=== PATIENT | male | born 1930 | race Caucasian/White ===

== ENCOUNTER 2016-07-27 00:08 | Observation (INO) ==
[2016-07-27] MEDS ORDERED: PANTOPRAZOLE 40 MG VIAL IV ONE (00:25)
[2016-07-27] MEDS ORDERED: 0.9 % SODIUM CHLORIDE 1,000 ML IV ONE (00:25)
--- NOTE | 2016-07-27 00:25 | Emergency Department Note ---
General Adult HPI - General Chief complaint: Dizziness Stated complaint: Lightheadedness, Black Stool Time Seen by Provider: 07/27/16 00:17 Source: patient Mode of arrival: ambulatory Limitations: no limitations - History of Present Illness HPI Narrative: 86-year-old male states that he had an episode of stools 3 days ago on a another bowel movement one day ago and a bowel movement today which was black. denies any abdominal pain. He uses an 81 mg aspirin daily is been no hematemesis, no diarrhea, no nausea or vomiting. - Related Data Home Medications Medication Instructions Recorded Confirmed Aspirin [Denisse Chewable Aspirin] 81 mg PO QDAY 06/27/15 05/19/16 latanoprost 0.005 % eye drops OPHTHALMIC 25 Days 08/19/15 05/19/16 cyanocobalamin (vit B-12) 1,000 1,000 mcg PO QDAY 08/24/15 05/19/16 mcg tablet omega-3 fatty acids 1,000 mg 1,000 mg PO QDAY 04/19/16 05/19/16 capsule qjarmcap-zuj-vjuzs acid 300 tab PO 05/19/16 05/19/16 mcg-lycopene 600 mcg-lutein 300 mcg tablet Previous Rx's Medication Instructions Recorded tamsulosin 0.4 mg capsule 0.4 mg PO QDAY #90 cap 08/19/15 metoprolol succinate ER 50 mg 50 mg PO QDAY #90 tab 01/11/16 tablet,extended release 24 hr amlodipine 5 mg tablet 5 mg PO QDAY 30 Days 03/22/16 levothyroxine 50 mcg tablet 50 mcg PO QDAY #90 tab 03/29/16 oxybutynin chloride 5 mg tablet 5 mg PO TID #30 tab 05/19/16 Allergies Allergy/AdvReac Type Severity Reaction Status Date / Time No Known Drug Allergies Allergy Verified 05/19/16 08:55 Review of Systems All systems ED: reviewed and negative except as stated. Constitutional: Denies: fever, chills Eyes: Denies: eye pain ENT ED: Denies: ear pain Cardiovascular: Denies: chest pain Respiratory: Denies: cough Gastrointestinal: Reports: as per HPI, melena. Denies: abdominal pain, nausea, vomiting, diarrhea, constipation, hematemesis, hematochezia Genitourinary: Reports: as per HPI. Denies: urgency, dysuria, frequency Musculoskeletal: Denies: back pain Integumentary: Denies: rash Neurological: Denies: headache Psychiatric: Denies: anxiety Past Medical History - Past Medical History Medical history: Reports: arthritis, GERD, hypertension, other (Peripheral neuropathy, vertigo, urinary frequency, squamous cell carcinoma prostate cancer , peripheral vascular disease, onychomycosis, leukocytopenia, or seal, hiatal hernia, heart disease, glaucoma, T, esophageal stricture, colon adenoma, basal cell carcinoma, cardiac arrhythmia or aortic insufficiency actinic keratosis, gastroenteritis.) Surgical history ED: Reports: hip replacement, other (prostate biopsy, EGD, tonsillectomy) - Social History Alcohol use: Reports: None Drug use: Reports: none Physical Exam - General Limitations: no limitations General appearance: alert - Head Head exam: atraumatic - Eye Eye exam: Present: normal appearance, PERRL - ENT ENT exam: normal exam, normal oropharynx - Neck Neck exam: Present: normal inspection, full ROM - Chest Chest inspection: Present: normal inspection, symmetric chest wall rise - Respiratory Respiratory exam: Present: normal lung sounds bilaterally. Absent: respiratory distress, wheezes - Cardiovascular Cardiovascular exam: Present: regular rate, normal rhythm. Absent: bradycardia - Abdominal Exam Abdominal exam: Present: soft, normal bowel sounds. Absent: distention, tenderness, guarding, rebound, tenderness at McBurney's Point - Rectal Exam Rectal exam: Present: normal rectal tone, heme (+) stool, black stool - exam: Present: normal inspection. Absent: testicular tenderness - Extremities Exam Extremities exam: Present: normal inspection, full ROM. Absent: tenderness - Back Exam Back exam: Present: normal inspection, full ROM. Absent: tenderness - Neurological Exam Neurological exam: Present: alert, oriented X3, CN II-XII intact - Psychiatric Psychiatric exam: Present: normal affect, normal mood Course Vital Signs Temperature 98.3 F 07/27/16 00:09 Pulse Rate 91 H 07/27/16 00:09 Respiratory Rate 18 07/27/16 00:09 Blood Pressure 153/62 07/27/16 00:09 Pulse Oximetry (%) 96 07/27/16 00:09 Temperature 98.3 F 07/27/16 00:09 Pulse Rate 91 H 07/27/16 00:09 Respiratory Rate 18 07/27/16 00:09 Blood Pressure 153/62 07/27/16 00:09 Pulse Oximetry (%) 96 07/27/16 00:09 Medical Decision Making - MDM Narrative Medical decision making narrative: black stools x 3 days 3 bm's during that time. Hb 8.1 and hct 24.9. On protonix drip now aFTER BOLUS OF 80 MG. Rectal hemetest positive. cross and typed [address] Briones contacted and pt scheduled for egd in am pt admitted for observation. Pt states he is DNR - Lab Data Result diagrams: 07/27/16 00:25 Lab Results 07/27/16 07/27/16 07/27/16 Range/Units 00:25 00:25 00:50 WBC 4.9 (4.5-11.0) K/mcL RBC 2.86 L (4.50-5.90) M/mcL Hgb 8.1 L (13.5-16.5) g/dL Hct 24.9 L (41.0-55.0) % POC Hct 22.0 L (41.0-55.0) % MCV 87.1 (80.0-100.0) fL MCH 28.5 (26.0-34.0) pg MCHC 32.8 (31.0-36.0) g/dL RDW 15.6 H (11.5-14.5) % Plt Count 266 (140-440) K/mcL MPV 6.1 L (7.4-10.4) fL Gran % 46.7 (38.0-78.0) % Lymph % (Auto) 42.1 (15.5-49.0) % [place] % (Auto) 8.0 (1.0-9.0) % Eos % (Auto) 2.9 (0.0-7.0) % Baso % (Auto) 0.3 (0.0-2.0) % Gran # 2.3 (1.8-8.0) K/mcL Lymph # 2.1 (1.5-4.8) K/mcL [place] # 0.4 (0.1-0.9) K/mcL Eos # 0.1 (0.0-0.7) K/mcL Baso # 0 (0.0-0.3) K/mcL POC PT 12.1 sec POC INR 1.0 (0.9-1.2) POC Sodium 142 (133-145) mmol/L POC Potassium 3.5 (3.3-5.1) mmol/L POC Chloride 104 (96-108) mmol/L POC Total CO2 22 (22-30) mmol/L POC BUN 20 (8-23) mg/dl POC Creatinine 1.0 (0.7-1.2) mg/dl POC Glucose 103 (70-105) mg/dL POC WB Ioniz Calcium 1.01 L (1.16-1.32) mmol/L Disposition Clinical Impression: Upper GI bleed Disposition: Xfer As Outpt/Obs ([facility]) Condition: Fair Referrals: Benjamin Patricia MD [Primary Care Provider] -
[2016-07-27] MEDS: PANTOPRAZOLE 80 MG in 0.9 % SODIUM CHLORIDE 100 ML IV SCH ×3 (00:59→21:06)
[2016-07-27 01:10] LABS: Basophils # (Auto) 0 K/mcL (0.0-0.3); Basophils % (Auto) 0.3 % (0.0-2.0); Eosinophils # (Auto) 0.1 K/mcL (0.0-0.7); Eosinophils % (Auto) 2.9 % (0.0-7.0); Granulocytes % (Auto) 46.7 % (38.0-78.0); Lymphocytes # (Auto) 2.1 K/mcL (1.5-4.8); Lymphocytes % (Auto) 42.1 % (15.5-49.0); Mean Cell Volume 87.1 fL (80.0-100.0); Mean Corpuscular HGB Conc 32.8 g/dL (31.0-36.0); Mean Corpuscular Hemoglobin 28.5 pg (26.0-34.0); Monocytes # (Auto) 0.4 K/mcL (0.1-0.9); Platelet Count 266 K/mcL (140-440); RBC 2.86 M/mcL (4.50-5.90); Red Cell Distribution Width 15.6 % (11.5-14.5)
[2016-07-27] MEDS ORDERED: ONDANSETRON 4 MG/2 ML VIAL IV PRN ×3 (01:20→16:49)
[2016-07-27] MEDS: 0.9 % SODIUM CHLORIDE 1,000 ML IV SCH ×3 (02:55→18:04)
--- NOTE | 2016-07-27 07:06 | XRay Report ---
CLINICAL INFORMATION: GI bleeding COMPARISON: None. FINDINGS: Stool gas pattern is normal. There is no free air, soft tissue mass, organomegaly or pathologic calcification. The right diaphragm is moderately elevated - unchanged from a chest x-ray over two years ago IMPRESSION: Chronic elevation right diaphragm - stable. No intra-abdominal disease Interpreted and Authenticated by: Armando Beauchamp 07/27/16
[2016-07-27 09:40] LABS: Mean Cell Volume 87.2 fL (80.0-100.0); Mean Corpuscular HGB Conc 33.2 g/dL (31.0-36.0); Mean Corpuscular Hemoglobin 28.9 pg (26.0-34.0); Platelet Count 255 K/mcL (140-440); RBC 3.37 M/mcL (4.50-5.90)
[2016-07-27 10:07] LABS: Band Neutrophils % 1 % (0-10); Eosinophils % (Manual) 4 % (0-7); Lymphocytes % 39 % (15-49); Monocytes % (Manual) 6 % (1-9); Platelet Estimate NORMAL (NORMAL); RBC Morphology ABNORMAL (NORMAL); Segmented Neutrophils % 47 % (38-78)
--- NOTE | 2016-07-27 13:46 | XRay Report ---
CLINICAL INFORMATION: Preop COMPARISON: 07/21/2016 two view chest x-ray FINDINGS: Heart is at upper limits of normal in size. Mediastinum and pulmonary vessels are normal. Scattered calcified granulomas seen - as before. There are no new pulmonary abnormality. No effusion. Marked chronic elevation right diaphragm is unchanged IMPRESSION: No acute disease. Marked chronic elevation right diaphragm - unchanged Interpreted and Authenticated by: Armando Beauchamp 07/27/16
--- NOTE | 2016-07-27 14:40 | General Surg History&Physical ---
History of Present Illness Patient information: Note initiated : 07/27/16 at 2:37 pm Service Date, if different from initiated Date: [] Patient: Kong Kirkland 86 y/o M admitted on 07/27/16 for Lightheadedness, Black Stool. Chief Complaint: [] HPI: Mr. Kirkland is a 86 year old male who is admitted with recurrent melena. Patient had black bowel movements on 1516 and 26 July. 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 When seen last evening his hemoglobin was 8.1. The patient denies dysphagia or indigestion. He has not had weight loss. He does have a history of constipation. 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 He has a history of esophageal strictue in the past. He also has a history of colon polyps but cannot remember th. He has been transfu hemoglobin is now 9.8. He has not had any melena since admission to the hospital early this morning. Review of Systems - Constitutional no anorexia, no malaise, no weakness, no weight loss - EENT Nose, mouth and throat: dizziness, vertigo - Cardiovascular dyspnea on exertion, palpatations, rapid heart rate, syncope - Respiratory dyspnea on exertion, no cough, no wheezing - Gastrointestinal abdominal pain, constipation - Genitourinary nocturia, urinary frequency, urinary urgency - Musculoskeletal arthralgias, back pain - Integumentary no changing lesions - Neurological numbness, paresthesias - Psychiatric no anxiety, no confusion, no depression - Endocrine palpitations, no fatigue - Hematologic/Lymphatic no easy bleeding, no easy bruising, no lymphadenopathy - Allergic/Immunologic no tongue swelling, no throat swelling, no uticaria, no wheezing, no lip swelling Past History Past medical history: prostate cancer History of syncope History of colon polyps gastroesophageal reflux disease with Mccormick's esophagusHistory of distal esophageal stricture Peripheral neuropathy Aortic insufficiency Leukopenia Peripheral vascular disease Hypertension history of multiple skin cancers Past surgical history: left total hip arthroplasty 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 Past family history: lung cancer Prostate cancer Coronary artery disease Past social history: never smoker Denies alcohol use Denies drug use Medications and Allergies Home Medications Medication Instructions Recorded Confirmed Type Aspirin [Denisse Chewable Aspirin] 81 mg PO QDAY 06/27/15 07/27/16 History cyanocobalamin (vit B-12) 1,000 1,000 mcg PO QDAY 08/24/15 07/27/16 History mcg tablet omega-3 fatty acids 1,000 mg 1,000 mg PO QDAY 04/19/16 07/27/16 History capsule jjxofyhk-ofw-ddxcz acid 300 1 tab PO DAILY 05/19/16 07/27/16 History mcg-lycopene 600 mcg-lutein 300 mcg tablet Latanoprost Ophth Drops [Xalatan 1 gtt BOTH EYES HS 07/27/16 07/27/16 History Ophth Drops] Allergies Allergy/AdvReac Type Severity Reaction Status Date / Time No Known Drug Allergies Allergy Verified 05/19/16 08:55 Exam Temp Pulse Resp BP Pulse Ox 98.2 F 69 15 123/79 93 07/27/16 11:22 07/27/16 11:22 07/27/16 11:22 07/27/16 11:22 07/27/16 11:22 - General physical appearance well developed, well nourished, no distress - Eyes PERRL, normal ocular movement - ENT normal pinna, normal nares, normal mucosa, no hearing loss, no congestion, dentures - Head Head exam IM: Present: atraumatic, normocephalic - Neck no masses, no bruits, trachea midline, no lymphadectomy, no venous distension - Cardiovascular Cardiovascular exam IM: Present: normal rate and rhythm, +S1, +S2, tachycardia - Respiratory normal expansion, normal respiratory effort, clear to percussion, clear to auscultation - Abdomen Abdomen: Present: soft, non tender, bowel sounds. Absent: masses, distended Hernia: Present: none - Integumentary Present: no rash, no growths, no abnormal pigmentation - Neurologic Present: normal coordination, normal sensation - Musculoskeletal Present: normal gait, normal posture - Psychiatric Present: oriented to time, oriented to person, oriented to place, speech is normal, memory intact Assessment and Plan (1) Upper GI bleed patient is counseled for upper endoscopy. It will be done when space and time are available today. He will be continued on pantoprazole infusion. Status: Acute (2) Mccormick's esophagus Status: Chronic Qualifiers: Mccormick's esophagus type: without dysplasia Qualified Code(s): K22.70 - Mccormick's esophagus without dysplasia (3) Esophageal stricture Status: Chronic (4) Hypertension, essential Status: Chronic (5) Peripheral neuropathy Status: Chronic Qualifiers: Peripheral neuropathy type: polyneuropathy, unspecified Qualified Code(s): G62.9 - Polyneuropathy, unspecified (6) Prostate cancer Status: Chronic Comment: Prostate carcinoma, treated with radiation seed implants (7) Syncope Status: Resolved Comment: Neurogenic cardiosyncope
[2016-07-27] MEDS ORDERED: PROPOFOL 200 MG/20 ML VIAL IV ONE (16:12)
[2016-07-27] MEDS ORDERED: MIDAZOLAM 5 MG/5 ML VIAL IV ONE (16:12)
[2016-07-27] MEDS ORDERED: LACTATED RINGERS 250 ML IV PRN (16:26)
[2016-07-27] MEDS ORDERED: ePHEDrine 50 MG/ML AMPUL IV PRN (16:26)
[2016-07-27] MEDS ORDERED: FLUMAZENIL 0.1 MG/ML ML IV PRN (16:26)
[2016-07-27] MEDS ORDERED: BENZOCAINE/MENTHOL 1 LOZENGE PO PRN (16:26)
[2016-07-27] MEDS ORDERED: diphenhydrAMINE 50 MG/ML VIAL IV PRN (16:26)
[2016-07-27] MEDS ORDERED: IPRATROPIUM/ALBUTEROL 3 ML AMPUL.NEB NEB PRN (16:26)
--- NOTE | 2016-07-27 16:28 | Brief Operative Note ---
Date of procedure: 07/27/16 Pre-op diagnosis: upper gastrointestinal bleeding Post-op diagnosis: other (distal esophagitis with distal esohageal linear ulcers x 2 ; large hiatal hernia; antral gastritis; severe duodenitis with healing duodenal ulcers; no active bleeding) Procedure: EGD WITH BIOPSIES Grafts/Implants: No Anesthesia: local Findings: LARGE HIATAL HERNIA; DISTAL ESOPHAGITIS WITH 2 LINEAR ULCERSWITH EARLY HEALING BASE; ANTRAL GASTRITIS ; DUODENITIS WITH HEALING DUODENAL BULB ULCER; NO ACTIVE BLEEDING Complications: none Surgeon: Ace Briones Estimated blood loss (cc): 0 Specimens Removed/Pathology: other (ANTRAL BIOPSIES) Condition: stable Disposition: PACU
[2016-07-27] MEDS ORDERED: LACTATED RINGERS 1,000 ML IV SCH ×2 (16:30→16:49)
[2016-07-27] MEDS ORDERED: 0.9 % SODIUM CHLORIDE 1,000 ML IV SCH (16:49)
[2016-07-27] MEDS: SUCRALFATE 1 GM/10 ML ORAL.SUSP PO SCH ×2 (18:00→23:26)
[2016-07-27] MEDS: LATANOPROST OPHTH DROPS 2.5ML BOTTLE OU SCH (20:08)
[2016-07-28] MEDS: SUCRALFATE 1 GM/10 ML ORAL.SUSP PO SCH ×3 (05:13→18:01)
[2016-07-28] MEDS: LEVOTHYROXINE 50 MCG TABLET PO SCH (06:59)
[2016-07-28 08:09] LABS: Basophils # (Auto) 0 K/mcL (0.0-0.3); Basophils % (Auto) 0.6 % (0.0-2.0); Eosinophils # (Auto) 0.1 K/mcL (0.0-0.7); Eosinophils % (Auto) 3.2 % (0.0-7.0); Lymphocytes # (Auto) 1.4 K/mcL (1.5-4.8); Lymphocytes % (Auto) 33.3 % (15.5-49.0); Mean Cell Volume 88.1 fL (80.0-100.0); Mean Corpuscular HGB Conc 33.3 g/dL (31.0-36.0); Mean Corpuscular Hemoglobin 29.3 pg (26.0-34.0); Monocytes # (Auto) 0.4 K/mcL (0.1-0.9); Monocytes % (Auto) 8.9 % (1.0-9.0); Platelet Count 266 K/mcL (140-440); RBC 3.49 M/mcL (4.50-5.90); Red Cell Distribution Width 15.6 % (11.5-14.5)
[2016-07-28] MEDS: PANTOPRAZOLE 80 MG in 0.9 % SODIUM CHLORIDE 100 ML IV SCH ×3 (08:11→20:23)
[2016-07-28 08:17] LABS: Blood Urea Nitrogen 10 mg/dl (8-23)
[2016-07-28] MEDS: TAMSULOSIN 0.4 MG CAPSULE PO SCH (08:45)
[2016-07-28] MEDS: amLODIPine 5 MG TABLET PO SCH (08:46)
[2016-07-28] MEDS: METOPROLOL SUCCINATE 50 MG TAB.XL.24H PO SCH (08:46)
[2016-07-28] MEDS ORDERED: PNEUMOCOCCAL 23-VAL P-SAC VAC 0.5 ML VIAL IM ONE (10:00)
--- NOTE | 2016-07-28 12:29 | Surgical Pathology Report ---
HISTOLOGY SPECIMEN MICROSCOPIC DIAGNOSIS STOMACH, ANTRUM, BIOPSY: -- MILD CHRONIC GASTRITIS. -- NO HELICOBACTER TYPE ORGANISMS IDENTIFIED (ALCIAN YELLOW STAIN WITH ADEQUATE TECHNICAL CONTROL). (RLF:lc) CLINICAL HISTORY Upper gastrointestinal bleeding. PROCEDURAL IMPRESSION Antral gastritis; large hiatal hernia; distal esophagitis with two linear ulcers; duodenitis with healing duodenal bulb ulcer. GROSS DESCRIPTION Received in formalin labeled antrum biopsy, is a 0.3 cm pink-dexter tissue fragment. Totally submitted - one cassette. (STM:adj) Electronically Signed by: Cielo Leyva M.D.
[2016-07-28] MEDS: 0.9 % SODIUM CHLORIDE 1,000 ML IV SCH (15:56)
--- NOTE | 2016-07-28 15:59 | General Surgery Progress Note ---
Subjective Narrative: Note initiated : 07/28/16 at 3:56 pm Service Date, if different from initiated Date: [] Patient: Kong Kirkland 86 y/o M admitted on 07/27/16 for Lightheadedness, Black Stool/Upper GI Bleed. Chief Complaint: [the patient has done well over the past 18 hours. He has no discomfor. He is eating without difficulty. He has not had a bowel movement as yet. His hemoglobin has increased.] Objective Temp Pulse Resp BP Pulse Ox 97.6 F 74 18 118/72 95 07/28/16 11:20 07/28/16 11:20 07/28/16 11:20 07/28/16 11:20 07/28/16 11:20 - Additional Data Intake & Output - Last 24 hours: Intake & Output 07/26/16 07/27/16 07/28/16 07/29/16 05:59 05:59 05:59 05:59 Intake Total 325 / 1325 2006 / 2006 1740 / 1740 Output Total 1125 / 1125 2029 / 2029 1325 / 1325 Balance -800 / 200 -23 / -23 415 / 415 Weight 190 lb 8 oz - Additional Exam HEENT is unremarkable Neck is supple without JVD bruits or adenopathy Chest clear to auscultation Heart regular without ectopy abdomen soft but mildly distended; no tenderness or guarding; good active bowel sounds Extremities without edema neurologic no focal deficits - Labs 07/28/16 07:18 07/28/16 07:18 Diabetes panel 07/28/16 Range/Units 07:18 Sodium 143 (133-145) mmol/L Potassium 3.7 (3.3-5.1) mmol/L Chloride 106 (96-108) mmol/L Carbon Dioxide 26 (22-30) mmol/L BUN 10 (8-23) mg/dl Creatinine 0.9 (0.7-1.2) mg/dl Glucose 90 (70-105) mg/dL Calcium 7.9 L (8.6-10.4) mg/dl Calcium panel 07/28/16 Range/Units 07:18 Calcium 7.9 L (8.6-10.4) mg/dl Pituitary panel 07/28/16 Range/Units 07:18 Sodium 143 (133-145) mmol/L Potassium 3.7 (3.3-5.1) mmol/L Chloride 106 (96-108) mmol/L Carbon Dioxide 26 (22-30) mmol/L BUN 10 (8-23) mg/dl Creatinine 0.9 (0.7-1.2) mg/dl Glucose 90 (70-105) mg/dL Calcium 7.9 L (8.6-10.4) mg/dl Adrenal panel 07/28/16 Range/Units 07:18 Sodium 143 (133-145) mmol/L Potassium 3.7 (3.3-5.1) mmol/L Chloride 106 (96-108) mmol/L Carbon Dioxide 26 (22-30) mmol/L BUN 10 (8-23) mg/dl Creatinine 0.9 (0.7-1.2) mg/dl Glucose 90 (70-105) mg/dL Calcium 7.9 L (8.6-10.4) mg/dl Medical - PN: A/P - Time Spent With Patient Total time spent is greater than 50% in coordination of care (as documented) at patient's floor/unit and/or counseling patient: (1) Upper GI bleed Status: Acute Assessment and plan: patient is stable and has no evidence of ongoing bleeding. He will probably be stable for discharge in the morning Current Visit: Yes (2) Mccormick's esophagus Status: Chronic Current Visit: No (3) Esophageal stricture Status: Chronic Current Visit: No (4) Hypertension, essential Status: Chronic Current Visit: No (5) Peripheral neuropathy Status: Chronic Current Visit: No (6) Prostate cancer Problem details: Prostate carcinoma, treated with radiation seed implants Status: Chronic Current Visit: No (7) Syncope Problem details: Neurogenic cardiosyncope Status: Resolved Current Visit: No
[2016-07-28] MEDS: LATANOPROST OPHTH DROPS 2.5ML BOTTLE OU SCH (22:22)
[2016-07-29] MEDS: SUCRALFATE 1 GM/10 ML ORAL.SUSP PO SCH ×3 (01:07→11:16)
[2016-07-29] MEDS: PANTOPRAZOLE 80 MG in 0.9 % SODIUM CHLORIDE 100 ML IV SCH ×2 (06:20→11:17)
[2016-07-29] MEDS: LEVOTHYROXINE 50 MCG TABLET PO SCH (07:24)
[2016-07-29] MEDS: TAMSULOSIN 0.4 MG CAPSULE PO SCH (08:34)
[2016-07-29] MEDS: amLODIPine 5 MG TABLET PO SCH (08:34)
[2016-07-29] MEDS: METOPROLOL SUCCINATE 50 MG TAB.XL.24H PO SCH (08:35)
[2016-07-29] MEDS: 0.9 % SODIUM CHLORIDE 1,000 ML IV SCH (11:05)
--- NOTE | 2016-07-29 11:40 | General Surgery Progress Note ---
Subjective Patient reports: feels better, tolerating a regular diet, flatus, no bowel movement, afebrile Narrative: Note initiated : 07/29/16 at 11:38 am Service Date, if different from initiated Date: [28 jul 2016] Patient: Kong Kirkland 86 y/o M admitted on 07/27/16 for Lightheadedness, Black Stool/Upper GI Bleed. Chief Complaint: [patient feels better. He has not had a bowel movement and he denies nausea. He's tolerating the diet without difficulty. He denies abdominal pain.] Objective Temp Pulse Resp BP Pulse Ox 99.0 F 75 14 108/71 95 07/29/16 08:00 07/29/16 08:00 07/29/16 08:00 07/29/16 08:00 07/29/16 08:00 - Additional Data Intake & Output - Last 24 hours: Intake & Output 07/27/16 07/28/16 07/29/16 07/30/16 05:59 05:59 05:59 05:59 Intake Total 325 / 1325 2006 / 2006 3480 / 3480 940 / 940 Output Total 1125 / 1125 2029 / 2029 2225 / 2225 650 / 650 Balance -800 / 200 -23 / -23 1255 / 1255 290 / 290 Weight 190 lb 8 oz 195 lb - General physical appearance well developed, no distress, no pain - Eyes PERRL - ENT no congestion - Neck no venous distension - Respiratory clear to auscultation - Cardiovascular Cardiovascular exam: Present: normal rate and rhythm, RRR, +S1, +S2 - Abdomen soft, non tender, bowel sounds (abdomen is soft. There is no tenderness. He has good active bowel sounds. There is no distention.) - Integumentary no rash, no growths - Neurologic normal coordination, normal sensation - Musculoskeletal normal posture, other (unstable gait) - Psychiatric oriented to time, oriented to person, oriented to place, speech is normal, memory intact - Labs 07/28/16 07:18 07/28/16 07:18 Medical - PN: A/P - Time Spent With Patient Total time spent is greater than 50% in coordination of care (as documented) at patient's floor/unit and/or counseling patient: (1) Upper GI bleed Status: Acute Assessment and plan: patient is stable and has no evidence of ongoing bleeding. He if stable for discharge We will follow up in 2 weeks Current Visit: Yes (2) Mccormick's esophagus Status: Chronic Current Visit: No (3) Esophageal stricture Status: Chronic Current Visit: No (4) Hypertension, essential Status: Chronic Current Visit: No (5) Peripheral neuropathy Status: Chronic Current Visit: No (6) Prostate cancer Problem details: Prostate carcinoma, treated with radiation seed implants Status: Chronic Current Visit: No (7) Syncope Problem details: Neurogenic cardiosyncope Status: Resolved Current Visit: No
--- NOTE | 2016-07-29 11:45 | General Surgery Progress Note ---
Subjective Patient reports: no new complaints, feels better, tolerating a regular diet, flatus, no bowel movement, afebrile Narrative: Note initiated : 07/29/16 at 11:42 am Service Date, if different from initiated Date: [] Patient: Kong Kirkland 86 y/o M admitted on 07/27/16 for Lightheadedness, Black Stool/Upper GI Bleed. Chief Complaint: [patient is stable and has no complaints. He has not had a bowel movement as yet but he is having flatus. He denies abdominal pain or indigestion. He is stable for discharge.] Objective Temp Pulse Resp BP Pulse Ox 99.0 F 75 14 108/71 95 07/29/16 08:00 07/29/16 08:00 07/29/16 08:00 07/29/16 08:00 07/29/16 08:00 - Additional Data Intake & Output - Last 24 hours: Intake & Output 07/27/16 07/28/16 07/29/16 07/30/16 05:59 05:59 05:59 05:59 Intake Total 325 / 1325 2006 / 2006 3480 / 3480 940 / 940 Output Total 1125 / 1125 2030 / 2030 2225 / 2225 650 / 650 Balance -800 / 200 -23 / -23 1255 / 1255 290 / 290 Weight 190 lb 8 oz 195 lb - Additional Exam HEENT is unremarkable except for hard of hearing Neck is supple without JVD Chest clear to auscultation Heart--regular without ectopy Abdomen--soft nontender and nondistended Extremities--no edema Neurologic exam--no focal deficit - Labs 07/28/16 07:18 07/28/16 07:18 Medical - PN: A/P - Time Spent With Patient Total time spent is greater than 50% in coordination of care (as documented) at patient's floor/unit and/or counseling patient: (1) Upper GI bleed Status: Acute Assessment and plan: patient is stable and has no evidence of ongoing bleeding. He if stable for discharge We will follow up in 2 weeks Current Visit: Yes (2) Mccormick's esophagus Status: Chronic Current Visit: No (3) Esophageal stricture Status: Chronic Current Visit: No (4) Hypertension, essential Status: Chronic Current Visit: No (5) Peripheral neuropathy Status: Chronic Current Visit: No (6) Prostate cancer Problem details: Prostate carcinoma, treated with radiation seed implants Status: Chronic Current Visit: No
--- NOTE | 2016-07-29 11:57 | Discharge Summary ---
Providers - Providers Patient information: Note initiated : 07/29/16 at 11:48 am Service Date, if different from initiated Date: [] Patient: Kong Kirkland 86 y/o M admitted on 07/27/16 for Lightheadedness, Black Stool/Upper GI Bleed. Chief Complaint: [] Date of admission: 07/27/16 Discharge date: 07/29/16 Attending physician: Ace Briones Hospitalization Hospital course: 86-year-old male admitted with upper GI bleed with melena. He was stabilized and underwent endoscopy which showed distal esophageal ulcers with evidence of recent bleed but no active bleeding; active acute distal esophagitis without stricture; active duodenal bulb ulcer without bleeding; active acute and subacute gastritis without ulceration. The patient has been stable since endoscopy. He has not had any more melena and his hemoglobin has increased. He has tolerated regular diet and is ready for discharge. He will be discharged on pantoprazole and Carafate. Discharge diagnosis: distal esophagealulcer with hemorrhage Secondary discharge diagnosis: acute distal esophagitis Acute antral erosive gastritis Acute duodenal ulcer Reason for admission: upper GI bleeding Procedures: ESOPHAGOGASTRODUODENOSCOPY Complications: none Exam Temp Pulse Resp BP Pulse Ox 99.0 F 75 14 108/71 95 07/29/16 08:00 07/29/16 08:00 07/29/16 08:00 07/29/16 08:00 07/29/16 08:00 - General physical appearance well nourished, no distress, no pain - Eyes PERRL, normal ocular movement - ENT normal pinna, normal nares, normal mucosa, no congestion, decreased hearing - Head Head exam IM: Present: atraumatic, normocephalic - Neck no masses, no lymphadectomy, no venous distension - Cardiovascular Cardiovascular exam IM: Present: normal rate and rhythm, RRR, +S1, +S2. Absent : JVD - Respiratory normal expansion, clear to auscultation - Abdomen Abdomen: Present: soft, non tender, bowel sounds, distended (normal bowel sounds without distention no tenderness or mass) - Integumentary Present: no rash, no growths - Neurologic Present: normal coordination, normal sensation - Musculoskeletal Present: other (unsteady gait and stance) - Psychiatric Present: oriented to time, oriented to person, oriented to place, speech is normal Discharge Plan - Patient/Caregiver Discharge Instructions Activity: increase activity as tolerated Diet: Regular Diet - Follow up Plan Follow up with: Benjamin Patricia MD [Primary Care Provider] - Disposition: Xfer Other Prognosis: Good Rehab Potential: Good I certify that the patient requires SNF services.: No Overall status at discharge: patient is back to baseline Pending Studies Resuscitation Status Do Not Resuscitate Diet Regular Diet Start Mari Jul 27 Breakfast Amlodipine Besylate (Norvasc) 5 mg PO QDAY [facility] Last Admin: 07/29/16 08:34 Dose: 5 mg Admin: 07/28/16 08:46 Dose: 5 mg Pantoprazole Sodium 80 mg/ (Sodium Chloride) 100 mls @ 10 mls/hr IV Q10H [facility] PRN Reason: 8 MG/HR Last Admin: 07/29/16 11:17 Dose: Not Given Admin: 07/29/16 06:20 Dose: 8 mg/hr, 10 mls/hr Infusion: 07/29/16 06:20 Dose: 8 mg/hr, 10 mls/hr Admin: 07/28/16 20:23 Dose: 8 mg/hr, 10 mls/hr Admin: 07/28/16 18:11 Dose: Not Given Infusion: 07/28/16 18:11 Dose: 8 mg/hr, 10 mls/hr Admin: 07/28/16 08:11 Dose: 8 mg/hr, 10 mls/hr Infusion: 07/28/16 07:06 Dose: 8 mg/hr, 10 mls/hr Admin: 07/27/16 21:06 Dose: 8 mg/hr, 10 mls/hr Sodium Chloride (Sodium Chloride 0.9%) 1,000 mls @ 50 mls/hr IV .Q20H [facility] Last Admin: 07/29/16 11:05 Dose: Not Given Admin: 07/28/16 15:56 Dose: 50 mls/hr Infusion: 07/28/16 15:56 Dose: 0 mls/hr Admin: 07/27/16 18:04 Dose: 50 mls/hr Latanoprost (Xalatan Ophth Drops) 1 gtt OU HS [facility] Last Admin: 07/28/16 22:22 Dose: Not Given Admin: 07/27/16 20:08 Dose: Not Given Levothyroxine Sodium (Synthroid) 50 mcg PO ACB [facility] Last Admin: 07/29/16 07:24 Dose: 50 mcg Admin: 07/28/16 06:59 Dose: 50 mcg Metoprolol Succinate (Toprol Xl) 50 mg PO QDAY [facility] Last Admin: 07/29/16 08:35 Dose: 50 mg Admin: 07/28/16 08:46 Dose: 50 mg Sucralfate (Carafate) 1 gm PO Q6 [facility] Last Admin: 07/29/16 11:16 Dose: 1 gm Admin: 07/29/16 05:52 Dose: 1 gm Admin: 07/29/16 01:07 Dose: 1 gm Admin: 07/28/16 18:01 Dose: 1 gm Admin: 07/28/16 11:57 Dose: 1 gm Admin: 07/28/16 05:13 Dose: 1 gm Admin: 07/27/16 23:26 Dose: 1 gm Admin: 07/27/16 18:00 Dose: 1 gm Tamsulosin HCl (Flomax) 0.4 mg PO QDAY [facility] Last Admin: 07/29/16 08:34 Dose: 0.4 mg Admin: 07/28/16 08:45 Dose: 0.4 mg Shift Summary 07/29/16 05:05 Shift Summary by Maryann Rivas Patient A&O, up ad flakito in room, is supposed to DC today. was originally going to DC after he had a BM, still no BM but is allowed to go with or without one. Has NS at 50 and protonix drip at 10ml/hr to LAC. No c/o pain or discomfort. Slept most the night. Initialized on 07/29/16 05:05 - END OF NOTE
[2016-07-29] MEDS ORDERED: PANTOPRAZOLE 40 MG PACKET PO SCH (17:00)
--- NOTE | 2016-08-03 15:50 | Operative Note ---
DATE OF OPERATION: 07/27/2016 PREOPERATIVE DIAGNOSIS: Upper GI bleeding. POSTOPERATIVE DIAGNOSES: Distal esophagitis with two distal esophageal linear ulcers, hiatal hernia, antral gastritis, severe duodenitis with healing duodenal ulcers, no active bleeding. PROCEDURE: Esophagogastroduodenoscopy with biopsies. SURGEON: Ace Briones MD. ANESTHESIA: Total intravenous anesthesia. DESCRIPTION OF PROCEDURE: Under general anesthesia, the patient turned to the left lateral decubitus position. Bite block was placed. A timeout procedure was carried out as per protocol. The scope was introduced through the bite block into the posterior pharynx and esophagus. Proximal esophagus was unremarkable. There was inflammation in the distal esophagus with two linear ulcers starting about 2 cm above the GE junction and advancing across the GE junction. They had an early healing base with suggestion of recent bleeding. There was diffuse gastritis which was more prominent in the antrum. Pylorus was unremarkable. There was acute inflammation in the duodenum with a healing about 0.5 cm duodenal ulcer with a fibrinous base and no active bleeding. The second and third portions of the duodenum were normal. Scope was pulled back. Retroflex view was done. The inflammation noted above was seen. Large hiatal hernia was noted. No other abnormality was seen. Biopsies of antrum were carried out, and specimens were sent for ANKIT test. The patient tolerated the procedure well. Air was suctioned from the stomach, and the scope was removed. The patient was awakened and taken to the postanesthetic care unit in stable, satisfactory condition. LCS:cal Job ID: [id number] Doc ID: [id number] Ace Briones M.D.
== END 2016-07-29 15:15 | disposition other institution (70) ==
LOC: MEDSUR 00:08 → ED 00:08 → MEDSUR 02:00
PROVIDERS: ADMIT Family Medicine Adult Medicine; ATTEND Family Medicine Adult Medicine